=== PATIENT | male | born 1965 | race Caucasian/White ===

== ENCOUNTER 2022-02-18 13:19 | Emergency (ER) | payer OTHER, BC ==
[2022-02-18] MEDS ORDERED: Lidocaine 1% w/Epinephrine 1:100K 20 ML VIAL ONE (13:33)
[2022-02-18] MEDS ORDERED: Bacitracin 1 PK ONE (13:33)
== END 2022-02-18 14:01 | disposition home or self-care (01) ==
LOC: BURERS 13:19
DX: S01.21XA Laceration without foreign body of nose, initial encounter (principal); W01.198A Fall on same level from slipping, tripping and stumbling with subsequent striking against other object, initial encounter
CPT/HCPCS: 12011

== ENCOUNTER 2023-02-16 17:34 | Emergency (ER) | payer BC ==
[2023-02-16] MEDS ORDERED: Ketorolac Tromethamine 30 MG/ML VIAL ONE (18:10)
[2023-02-16] MEDS ORDERED: Ondansetron PF 4 MG/2 ML Vial ONE (18:10)
[2023-02-16] MEDS ORDERED: Morphine 4 MG/ML VIAL ONE ×2 (18:10→19:06)
[2023-02-16 18:12] LABS: #Basophils 0.1 thou/uL (0.0-0.2); #Eosinphils 0.2 thou/uL (0.0-0.7); #Lymphocytes 1.8 thou/uL (1.20-3.40); #Monocytes 0.6 thou/uL (0.11-0.59); #Neutrophils 3.6 thou/uL (1.40-6.50); %Basophils 1.1 % (0.0-1.0); %Eosinophils 3.2 % (0.0-10.0); %Lymphocytes 29.1 % (21.0-51.0); %Monocytes 9.7 % (0.0-10.0); %Neutrophils 56.8 % (42.0-75.0); Hemoglobin 15.1 g/dL (14.0-18.0); Mean Corpuscular HGB CONC 32.8 g/dL (32.0-36.0); Mean Corpuscular Hemoglobin 28.2 pg (27.0-31.0); Mean Platelet Volume 6.9 fL (7.4-10.4); Platelet Count 195 10x3/uL (130-400); RBC Distribution Width 12.4 % (11.5-14.5); Red Blood Cell (RBC) Count 5.35 mill/uL (4.70-6.10); White Blood Cell (WBC) Count 6.3 10x3/uL (4.8-10.8)
[2023-02-16 18:24] LABS: ALT (SGPT) 20 U/L (8-55); AST (SGOT) 20 U/L (5-34); Albumin 4.1 g/dL (3.5-5.0); Alkaline Phosphatase 49 U/L (40-110); Anion Gap 17 mmol/L (10-20); BUN (Urea Nitrogen) 12 mg/dL (8.4-25.7); Bilirubin, Total 0.3 mg/dL (0.2-1.2); Calc. Creatinine Clearance 0 mL/min (70-130); Calcium 9.4 mg/dL (7.8-10.44); Carbon Dioxide 22 mmol/L (22-29); Chloride 109 mmol/L (98-107); Estimated GFR 70; Globulin 2.5 g/dL (2.4-3.5); Glucose 109 mg/dL (70-105); Potassium 3.8 mmol/L (3.5-5.1); Protein, Total 6.6 g/dL (6.0-8.3); Sodium 144 mmol/L (136-145)
[2023-02-16] MEDS ORDERED: Promethazine HCl 25 MG/ML VIAL ONE (18:30)
== END 2023-02-16 20:22 | disposition home or self-care (01) ==
LOC: BURERS 17:34
DX: N13.2 Hydronephrosis with renal and ureteral calculous obstruction (principal)
CPT/HCPCS: 74176; 80053; 85025; 96361; 96374; 96375; 96376; J1885; J2270; J2405; J2550